=== PATIENT | male | born 1955 | race Caucasian/White ===

== ENCOUNTER 2017-04-01 06:29 | Inpatient (IN) | payer OTHER ==
[2017-04-01] VITALS (28 sets, daily range): BP systolic 98–140; BP diastolic 55–79; PULSE 63–76; RESP 10–22; Ht 162.6 cm; Wt 69.3 kg
[~2017-04-01] VITALS: Ht 162.6 cm; Wt 69.3 kg
[~2017-04-01 06:29] MED LIST: AMLO-147 PO; BECL8.7A INH; LOSA25TA5 PO; OMEP20CA16 PO
[2017-04-01] MEDS ORDERED: POLYMYXIN/BACITRACIN 1L IRRIG ONE (07:19)
[2017-04-01] MEDS ORDERED: POLYMYXIN B 500000 UNIT INJ ONE (07:19)
[2017-04-01] MEDS ORDERED: BACITRACIN 50000 UNITS INJ ONE (07:21)
[2017-04-01] MEDS ORDERED: LOSA100T7 PO (07:49)
[2017-04-01] MEDS ORDERED: PROPOFOL 20 ML ONE (08:02)
[2017-04-01] MEDS ORDERED: morphine SULFATE/PF (10 MG/10 ML) INJ ONE (08:03)
[2017-04-01] MEDS ORDERED: FENTAnyl 50 MCG/ML VIAL ONE (08:03)
[2017-04-01] MEDS ORDERED: ROPIVACAINE 0.5 % 30 ML VIAL ONE (08:03)
[2017-04-01] MEDS ORDERED: METOCLOPRAMIDE 10 MG INJ ONE (08:03)
[2017-04-01] MEDS ORDERED: MIDAZOLAM 1 MG/ML 2 ML INJ ONE (08:03)
[2017-04-01] MEDS ORDERED: KETOROLAC 30 MG INJ ONE (08:05)
--- NOTE | 2017-04-01 08:51 | HPN ---
Date/Time of Note Date/Time of Note DATE: 04/01/17 TIME: 08:51 Interval H&P Admission Note Pt. seen H&P reviewed: No system changes GLADYS MAYA MD Apr 01, 2017 08:51
[2017-04-01] MEDS ORDERED: TRANEXAMIC ACID IVPB ONE ×2 (09:00→10:30)
[2017-04-01] MEDS ORDERED: SOD CHLORIDE 0.9% IVPB ONE ×2 (09:00→10:30)
[2017-04-01] MEDS ORDERED: CEFAZOLIN 1 GM INJ ONE (09:10)
[2017-04-01] MEDS ORDERED: EPHEDrine SULFATE 50 MG/5 ML SYG ONE (09:17)
[2017-04-01] MEDS ORDERED: ONDANSETRON 4 MG INJ ONE (09:31)
[2017-04-01] MEDS ORDERED: ONDANSETRON 4 MG INJ IV PRN (10:00)
[2017-04-01] MEDS ORDERED: MEPERIDINE 25 MG INJ IV PRN (10:00)
[2017-04-01] MEDS ORDERED: HYDROmorphONE (0.2 MG/ML) 10ML SYG IV PRN ×3 (10:00)
[2017-04-01] MEDS ORDERED: DIPHENHYDRAMINE 50 MG INJ IV PRN (10:00)
[2017-04-01] MEDS ORDERED: METOCLOPRAMIDE 10 MG INJ IV PRN (10:00)
--- NOTE | 2017-04-01 11:26 | OPR ---
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 POSTOPERATIVE DIAGNOSIS: Right knee osteoarthritis. OPERATION PERFORMED: Right total knee replacement. SURGEON: Jaydon Maya MD CROWNING INSPECTOR: Юлия Hendrix ANESTHESIOLOGIST: [Abeba Angulo] ANESTHESIA: General endotracheal anesthesia with spinal anesthetic and an adductor canal block. ESTIMATED BLOOD LOSS: [150 cc] INDICATIONS FOR PROCEDURE: This is a 62-year-old male who has had progressive pain in the right knee. The patient has failed nonoperative treatment and now presents for elective total knee replacement. Risks and benefits were discussed with the patient, risks including but not limited to infection, bleeding, blood clots, dislocation, fracture, knee stiffness, nerve damage, blood vessel damage, along with other medical, anesthetic and surgical complications were discussed. Informed consent was obtained. DESCRIPTION OF PROCEDURE: The patient's correct extremity was identified in the preoperative area. The patient was brought back to the operating room where a spinal anesthetic was placed followed by an adductor canal block. The correct extremity was then prepped and draped in the standard sterile manner. A timeout was performed. Esmarch was used to exsanguinate. The thigh tourniquet was inflated to 250 mmHg. I then made a standard midline incision for approaching the knee. I went through skin and subcutaneous tissue, made a medial parapatellar arthrotomy. Then, flexed the knee and introduced an intramedullary alignment guide. Distal femoral cut was made and then the extramedullary alignment guide was used to make the tibial cut. Flexion and extension gaps were checked. There were symmetric. The knee went from full extension to full flexion. I then turned my attention to the patella. I used an [id number] mill type cutting guide, cut the patellar to appropriate thickness and sized the patella. I then trialed the patella. The patella tracked well without any external pressure. I then made the peg holes for the femoral trial. Punched the tibia. I took out all trial components. Thoroughly irrigated the bony surfaces, dried them with a lap sponge. I then proceeded to cement the tibia, femur and patellar components. A trial insert was used till the cement hardened. After the cement hardened, I thoroughly irrigted the knee. The knee was well balanced. I then let down the tourniquet, obtained adequate hemostasis. I thoroughly irrigated the knee. I then impacted the appropriate all poly insert until it locked into place and I had full range of motion with just a jog of opening with varus and valgus stress. I then turned my attention to closure. I closed the medial parapatellar arthrotomy with interrupted #1 Vicryl, subcutaneous tissue was closed with 2-0 Vicryl, skin with everton. Dry sterile dressings were applied. The patient had good perfusion to her foot with a 2+ dorsalis pedis pulse. He was then extubated and transported to recovery in stable condition. JAYDON MAYA MD Apr 01, 2017 11:26
[2017-04-01] MEDS ORDERED: DOCUSATE SODIUM 100 MG CAP PO ONE (11:30)
[2017-04-01] MEDS ORDERED: SENNA/DOCUSATE NA (8.6MG/50MG) TAB PO PRN (11:30)
[2017-04-01] MEDS ORDERED: oxyCODONE 5 MG TAB PO PRN (11:30)
[2017-04-01] MEDS ORDERED: MAGNESIUM HYDROXIDE 30ML CUP PO PRN (11:30)
[2017-04-01] MEDS ORDERED: NALOXONE (0.4 MG/ML) INJ IV PRN (11:30)
[2017-04-01] MEDS: ONDANSETRON 4 MG INJ IV SCH ×2 (11:53→17:14)
[2017-04-01] MEDS: CEFAZOLIN 1 GM/50 ML (PMX) 50 ML IVPB SCH ×2 (12:00→19:56)
--- NOTE | 2017-04-01 13:29 | RADRPT ---
PROCEDURE: XR Knee. CLINICAL INDICATION: Status post right knee replacement TECHNIQUE: AP and lateral view of the right knee were obtained. The images reviewed on a PACS wor kstation. COMPARISON: None. FINDINGS: Complete right knee replacement is identified. Prosthetic components are in appropriate position an d alignment. No fractures or destructive lesions are observed. Surgical drain is seen in the knee. Soft tissue air is procedural in nature. IMPRESSION: Status post right knee replacement. Prosthetic components are in appropriate position and alignment . RPTAT: AA .Alan Salmon MD, MD Date Time Electronically viewed and signed by .Alan Salmon MD, on 04/01/2017 13:29 .P/
[2017-04-01] MEDS: morphine 2 MG INJ IV PRN (14:40)
[2017-04-01] MEDS: DEXTROSE 5%-LR 1,000 ML IV SCH ×2 (14:42→23:43)
--- NOTE | 2017-04-01 18:54 | HP ---
Date/Time of Note Date/Time of Note DATE: 04/01/17 TIME: 18:41 Assessment/Plan VTE Prophylaxis VTE Prophylaxis Intervention: LMWH Lines/Catheters IV Catheter Type (from Nrsg): Peripheral IV Central line still needed: Yes Urinary Cath still in place: No Reason Cath still needed: urinary retention Assessment/Plan Assessment/Plan -Right knee osteoarthritis, status post right total knee replacement. Continue Roxicodone and morphine as needed for pain and Zofran as needed for nausea. F/ up surgery recommendations. -Hypertension, resume patient's home antihypertensive medication, hydralazine as needed for systolic blood pressure above 170. -Possible COPD, continue breathing treatment as needed Further recommendations based on clinical course. Plan of care discussed with Dr. Reynolds. HPI/ROS Admit Date/Time Admit Date/Time Apr 01, 2017 at 06:29 Hx of Present Illness The patient is 62-year-old gentleman with past medical history positive for hypertension and lung surgery 15 years ago, details are not available. Patient was evaluated by Dr. Monae for progressive pain in the right knee due to osteoarthritis. Patient brought to the hospital and underwent right total knee replacement. Postoperatively patient experienced pain and experienced a nonbilious nonbloody emesis after dinner. Patient denies any chest pain denies any shortness of breath denies any fever. Patient is admitted for further evaluation and management. ROS 12 point review of system is negative unless what mentioned in HPI PMH/Family/Social Past Medical History Medical History: hypertension Past Surgical History Past Surgical Hx: other (Lung surgery) Family History Significant Family History: no pertinent family hx Social History Alcohol Use: none Smoking Status: Never smoker Drug Use: none Exam/Review of Systems Vital Signs Vitals Vital Signs Date Time Temp Pulse Resp B/P Pulse Ox O2 Delivery O2 Flow Rate FiO2 04/01/17 17:00 64 17 124/68 96 Room Air 04/01/17 14:00 98.7 Exam Constitutional: alert Psych: no complaints Head: atraumatic, normocephalic Neck: supple Respiratory: normal air movement Cardiovascular: nl pulses Gastrointestinal: non-tender, soft Musculoskeletal: other (Status post right total knee replacement) Extremities: normal pulses 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 intact Skin: nl turgor Medications Medications Current Medications Dextrose/Lactated Ringer's (D5-Lr) 1,000 ml @ 80 mls/hr [id number] IV Last administered on 04/01/17 14:42; Admin Dose 80 MLS/HR; Start 04/01/17 at 11:13 Oxycodone HCl (Roxicodone) 10 mg Q3H PRN PO PAIN LEVEL 4-7; Start 04/01/17 at 11:30 Oxycodone HCl (Roxicodone) 5 mg Q3H PRN PO PAIN LEVEL 1-3; Start 04/01/17 at 11:30 Ondansetron HCl 4 mg 4 mg Q6H IV Last administered on 04/01/17 17:14; Admin Dose 4 MG; Start 04/01/17 at 12:00; Stop 04/02/17 at 06:01 Cefazolin Sodium (Ancef 1 Gm/50 ml (Pmx)) 50 ml @ 100 mls/hr Q8H IVPB Last administered on 04/01/17 12:00; Admin Dose 100 MLS/HR; Start 04/01/17 at 12: 00; Stop 04/02/17 at 04:29 Enoxaparin Sodium (Lovenox) 30 mg BID SC ; Start 04/02/17 at 09:00 Pantoprazole (Protonix Tab) 40 mg DAILY@06 PO ; Start 04/03/17 at 06:00 Docusate Sodium (Colace) 200 mg BID PO ; Start 04/02/17 at 09:00; Stop at 08:59 Senna/Docusate Sodium (Senokot-S) 2 tab BID PRN PO CONSTIPATION; Start at 11:30 Magnesium Hydroxide (Milk Of Mag) 30 ml HS PRN PO CONSTIPATION; Start at 11:30 Naloxone HCl (Narcan) 0.2 mg Q2M PRN IV DECREASED REPIRATORY RATE; Start at 11:30 Morphine Sulfate (morphine) 2 mg Q2H PRN IV PAIN LEVEL 7-10 Last administered on 04/01/17 14:40; Admin Dose 2 MG; Start 04/01/17 at 11:30 KATIE ROSE Apr 01, 2017 18:52
[2017-04-01] MEDS ORDERED: hydrALAzine 20 MG INJ IV PRN (19:00)
[2017-04-01] MEDS ORDERED: LEVALBUTEROL (NEB) 0.63 MG/3 ML AMP HHN PRN (19:00)
[2017-04-02] MEDS: ONDANSETRON 4 MG INJ IV SCH ×2 (00:27→05:04)
[2017-04-02] MEDS: morphine 2 MG INJ IV PRN ×3 (01:16→08:45)
[2017-04-02] MEDS: LEVALBUTEROL (NEB) 0.63 MG/3 ML AMP HHN SCH ×4 (02:57→19:59)
[2017-04-02 03:12] VITALS: BP 123/63; RESP 20
[2017-04-02] MEDS: CEFAZOLIN 1 GM/50 ML (PMX) 50 ML IVPB SCH (04:49)
[2017-04-02] MEDS: oxyCODONE 5 MG TAB PO PRN ×4 (05:03→20:32)
[2017-04-02 05:15] LABS: BASOPHILS % 0.3 % (0.0-2.0); EOSINOPHILS # 0.1 10^3/ul (0.0-0.5); EOSINOPHILS % 0.9 % (0.0-7.0); HEMATOCRIT 33.9 % (42.0-52.0); HEMOGLOBIN 11.2 g/dl (14.0-18.0); LYMPHOCYTES # 1.7 10^3/ul (0.8-2.9); LYMPHOCYTES % 15.6 % (15.0-51.0); MEAN CORPUSCULAR HEMOGLOBIN 30.2 pg (29.0-33.0); MEAN CORPUSCULAR VOLUME 91.4 fl (82.0-101.0); MEAN PLATELET VOLUME 10.3 fl (7.4-10.4); MONOCYTE # 1.1 10^3/ul (0.3-0.9); MONOCYTES % 10.5 % (0.0-11.0); NEUTROPHIL # 7.8 10^3/ul (1.6-7.5); NEUTROPHILS % 72.2 % (39.0-77.0); PLATELET COUNT 216 10^3/UL (140-415); RED BLOOD COUNT 3.71 10^6/ul (4.70-6.10); RED CELL DISTRIBUTION WIDTH 12.7 % (11.5-14.5); WHITE BLOOD COUNT 10.8 10^3/ul (4.8-10.8)
[2017-04-02 05:41] LABS: INR 1.11; PROTIME 14.3 Sec (12.2-14.2); PT RATIO 1.1
[2017-04-02 05:59] LABS: CALCIUM 8.6 mg/dl (8.4-10.2); CREATININE 0.8 mg/dl (0.61-1.24); POTASSIUM 3.3 mmol/L (3.5-5.1)
--- NOTE | 2017-04-02 06:04 | PN ---
Date/Time of Note Date/Time of Note DATE: 04/02/17 TIME: 06:01 Assessment/Plan VTE Prophylaxis VTE Prophylaxis Intervention: other Lines/Catheters IV Catheter Type (from Nrsg): Peripheral IV Urinary Cath still in place: Yes Subjective 24 Hr Interval Summary Free Text/Dictation Anesthesia note: A 62 year old male s/p right knee arthroplasty under GA, duramorph POD #1 is doing fine , no pain, N/V, back pain, headache. care per surgery Exam/Review of Systems Vital Signs Vitals Vital Signs Date Time Temp Pulse Resp B/P Pulse Ox O2 Delivery O2 Flow Rate FiO2 04/02/17 03:12 98.6 74 20 123/63 95 04/02/17 02:50 2.0 28 04/02/17 02:50 Nasal Cannula Intake and Output 04/01/17 04/01/17 04/02/17 15:00 23:00 07:00 Intake Total 1800 ml 1040 ml 940 ml Output Total 703 ml 1150 ml 1550 ml Balance 1097 ml -110 ml -610 ml Results Result Diagram: 04/02/17 0442 Results 24 hrs Laboratory Tests Test 04/02/17 04:42 White Blood Count 10.8 Red Blood Count 3.71 L Hemoglobin 11.2 L Hematocrit 33.9 L Mean Corpuscular Volume 91.4 Mean Corpuscular Hemoglobin 30.2 Mean Corpuscular Hemoglobin Concent 33.0 Red Cell Distribution Width 12.7 Platelet Count 216 Mean Platelet Volume 10.3 Neutrophils % 72.2 Lymphocytes % 15.6 Monocytes % 10.5 Eosinophils % 0.9 Basophils % 0.3 Nucleated Red Blood Cells % 0.0 Neutrophils # 7.8 H Lymphocytes # 1.7 Monocytes # 1.1 H Eosinophils # 0.1 Basophils # 0.0 Nucleated Red Blood Cells # 0.0 Prothrombin Time 14.3 H Prothrombin Time Ratio 1.1 INR International Normalized Ratio 1.11 Medications Medications Current Medications Dextrose/Lactated Ringer's (D5-Lr) 1,000 ml @ 80 mls/hr [id number] IV Last administered on 04/01/17 14:42; Admin Dose 80 MLS/HR; Start 04/01/17 at 11:13 Oxycodone HCl (Roxicodone) 10 mg Q3H PRN PO PAIN LEVEL 4-7 Last administered on 04/02/17 05:03; Admin Dose 10 MG; Start 04/01/17 at 11:30 Oxycodone HCl (Roxicodone) 5 mg Q3H PRN PO PAIN LEVEL 1-3; Start 04/01/17 at 11:30 Ondansetron HCl (Zofran Inj) 4 mg Q6H IV Last administered on 04/02/17 05:04 ; Admin Dose 4 MG; Start 04/01/17 at 12:00; Stop 04/02/17 at 06:01 Enoxaparin Sodium (Lovenox) 30 mg BID SC ; Start 04/02/17 at 09:00 Pantoprazole (Protonix Tab) 40 mg DAILY@06 PO ; Start 04/03/17 at 06:00 Docusate Sodium (Colace) 200 mg BID PO ; Start 04/02/17 at 09:00; Stop at 08:59 Senna/Docusate Sodium (Senokot-S) 2 tab BID PRN PO CONSTIPATION; Start at 11:30 Magnesium Hydroxide (Milk Of Mag) 30 ml HS PRN PO CONSTIPATION; Start at 11:30 Naloxone HCl (Narcan) 0.2 mg Q2M PRN IV DECREASED REPIRATORY RATE; Start at 11:30 Morphine Sulfate (morphine) 2 mg Q2H PRN IV PAIN LEVEL 7-10 Last administered on 04/02/17 03:22; Admin Dose 2 MG; Start 04/01/17 at 11:30 Amlodipine Besylate (Norvasc) 10 mg DAILY PO ; Start 04/02/17 at 09:00 Losartan Potassium (Cozaar) 100 mg DAILY PO ; Start 04/02/17 at 09:00 Hydralazine HCl (Apresoline) 10 mg Q4H PRN IV SBP>170; Start 04/01/17 at 19:00 YADIEL RITTER MD Apr 02, 2017 06:04
[2017-04-02 07:56] VITALS: BP 112/72; RESP 20
[2017-04-02] MEDS: ENOXAPARIN 30 MG/0.3 ML SYG SC SCH ×2 (08:42→20:33)
[2017-04-02] MEDS: DOCUSATE SODIUM 100 MG CAP PO SCH ×2 (08:45→20:32)
[2017-04-02] MEDS: LOSARTAN 50 MG TAB PO SCH (08:51)
[2017-04-02] MEDS: AMLODIPINE 10 MG TAB PO SCH (08:51)
--- NOTE | 2017-04-02 10:17 | RADRPT ---
PROCEDURE: XR Chest. CLINICAL INDICATION: Shortness of breath. TECHNIQUE: Single frontal view. COMPARISON: None. FINDINGS: The lungs are clear. The heart is enlarged. There is no pleural effusion. There is no pneumothorax. IMPRESSION: 1. Cardiomegaly. 2. Otherwise normal chest radiograph. RPTAT: QQ .Franc Estrada MD, MD Date Time Electronically viewed and signed by .Franc Estrada MD, on 04/02/2017 10:16 .R/
[2017-04-02] MEDS: DEXTROSE 5%-LR 1,000 ML IV SCH (12:13)
--- NOTE | 2017-04-02 12:15 | PN ---
Date/Time of Note Date/Time of Note DATE: 04/02/17 TIME: 12:13 Assessment/Plan Lines/Catheters IV Catheter Type (from Nrsg): Saline Lock G[place] in Place (from Nrsg): No Assessment/Plan Assessment/Plan POD 1 s/p R tka pain control Incentive spirometer d/c gasca On Lovenox, SCD's for DVT prophylaxis CPM, gait training with PT Discharge planning Subjective 24 Hr Interval Summary Complaining of pain, better after receiving pain meds Exam/Review of Systems Vital Signs Vitals Vital Signs Date Time Temp Pulse Resp B/P Pulse Ox O2 Delivery O2 Flow Rate FiO2 04/02/17 08:30 Nasal Cannula 2.0 04/02/17 07:56 98.8 92 20 112/72 96 04/02/17 02:50 28 Intake and Output 04/01/17 04/01/17 04/02/17 15:00 23:00 07:00 Intake Total 1800 ml 1040 ml 1700 ml Output Total 703 ml 1150 ml 1800 ml Balance 1097 ml -110 ml -100 ml Exam Free Text/Dictation Dressing c/d/i. Calf soft intact motor and sensory function in foot Foot warm Results Result Diagram: 04/02/17 0442 04/02/17 0442 GLADYS MAYA MD Apr 02, 2017 12:15
--- NOTE | 2017-04-02 13:20 | PN ---
Date/Time of Note Date/Time of Note DATE: 04/02/17 TIME: 13:17 Assessment/Plan VTE Prophylaxis VTE Prophylaxis Intervention: other Lines/Catheters IV Catheter Type (from Nrsg): Saline Lock Urinary Cath still in place: No Assessment/Plan Assessment/Plan - Hypokalemia- replace K, BMP am - status post right total knee replacement. Right knee- DDI, CSM intact - per ortho - Continue Roxicodone and morphine as needed for pain and Zofran as needed for nausea. - Right knee osteoarthritis -Hypertension - cont patient's home antihypertensive medication, hydralazine as needed for systolic blood pressure above 170. -Possible COPD, continue breathing treatment as needed Anticipate discharge when cleared by ortho. Discharge on Eliquis 2.5 mg po BID X 12 days.Further recommendations based on clinical course. Plan of care discussed with Dr. Reynolds. Subjective 24 Hr Interval Summary Free Text/Dictation status post right total knee replacement. c/o Right knee pain- DDI, CSM intact , able to use bed side commode. dw staff- no new events reported overnight. Respiratory: no complaints Cardiovascular: no complaints Gastrointestinal: no complaints Genitourinary: no complaints Musculoskeletal: bone/joint pain, other, restricted range of motion Exam/Review of Systems Vital Signs Vitals Vital Signs Date Time Temp Pulse Resp B/P Pulse Ox O2 Delivery O2 Flow Rate FiO2 04/02/17 08:30 Nasal Cannula 2.0 04/02/17 07:56 98.8 92 20 112/72 96 04/02/17 02:50 28 Intake and Output 04/01/17 04/01/17 04/02/17 15:00 23:00 07:00 Intake Total 1800 ml 1040 ml 1700 ml Output Total 703 ml 1150 ml 1800 ml Balance 1097 ml -110 ml -100 ml Exam Constitutional: alert, oriented Respiratory: clear to auscultation, diminished breath sounds Cardiovascular: nl pulses, regular rate and rhythm Gastrointestinal: non-tender, soft Extremities: normal pulses Neurological: nl mental status, nl speech Results Result Diagram: 04/02/17 0442 04/02/17441 Results 24 hrs Laboratory Tests Test 04/02/17 04:42 White Blood Count 10.8 Red Blood Count 3.71 L Hemoglobin 11.2 L Hematocrit 33.9 L Mean Corpuscular Volume 91.4 Mean Corpuscular Hemoglobin 30.2 Mean Corpuscular Hemoglobin Concent 33.0 Red Cell Distribution Width 12.7 Platelet Count 216 Mean Platelet Volume 10.3 Neutrophils % 72.2 Lymphocytes % 15.6 Monocytes % 10.5 Eosinophils % 0.9 Basophils % 0.3 Nucleated Red Blood Cells % 0.0 Neutrophils # 7.8 H Lymphocytes # 1.7 Monocytes # 1.1 H Eosinophils # 0.1 Basophils # 0.0 Nucleated Red Blood Cells # 0.0 Prothrombin Time 14.3 H Prothrombin Time Ratio 1.1 INR International Normalized Ratio 1.11 Sodium Level 139 Potassium Level 3.3 L Chloride Level 102 Carbon Dioxide Level 29 Anion Gap 11 Blood Urea Nitrogen 7 Creatinine 0.80 Glucose Level 123 Calcium Level 8.6 Medications Medications Current Medications Dextrose/Lactated Ringer's (D5-Lr) 1,000 ml @ 80 mls/hr [id number] IV Last administered on 04/01/17 14:42; Admin Dose 80 MLS/HR; Start 04/01/17 at 11:13 Oxycodone HCl (Roxicodone) 10 mg Q3H PRN PO PAIN LEVEL 4-7 Last administered on 04/02/17 11:08; Admin Dose 10 MG; Start 04/01/17 at 11:30 Oxycodone HCl (Roxicodone) 5 mg Q3H PRN PO PAIN LEVEL 1-3; Start 04/01/17 at 11:30 Enoxaparin Sodium (Lovenox) 30 mg BID SC Last administered on 04/02/17 08:42 ; Admin Dose 30 MG; Start 04/02/17 at 09:00 Pantoprazole (Protonix Tab) 40 mg DAILY@06 PO ; Start 04/03/17 at 06:00 Docusate Sodium (Colace) 200 mg BID PO Last administered on 04/02/17 08:45; Admin Dose 200 MG; Start 04/02/17 at 09:00; Stop 04/05/17 at 08:59 Senna/Docusate Sodium (Senokot-S) 2 tab BID PRN PO CONSTIPATION; Start at 11:30 Magnesium Hydroxide (Milk Of Mag) 30 ml HS PRN PO CONSTIPATION; Start at 11:30 Naloxone HCl (Narcan) 0.2 mg Q2M PRN IV DECREASED REPIRATORY RATE; Start at 11:30 Morphine Sulfate (morphine) 2 mg Q2H PRN IV PAIN LEVEL 7-10 Last administered on 04/02/17t 08:45; Admin Dose 2 MG; Start 04/01/17 at 11:30 Amlodipine Besylate (Norvasc) 10 mg DAILY PO ; Start 04/02/17 at 09:00 Losartan Potassium (Cozaar) 100 mg DAILY PO ; Start 04/02/17 at 09:00 Hydralazine HCl (Apresoline) 10 mg Q4H PRN IV SBP>170; Start 04/01/17 at 19:00 TAE ERICKSON Apr 02, 2017 13:20
[2017-04-02] MEDS ORDERED: POTASSIUM CHLORIDE 20 MEQ in SOD CHLORIDE 0.9% 100 ML IVPB ONE (15:00)
[2017-04-02 15:53] VITALS: BP 171/84; RESP 20
[2017-04-02 20:00] VITALS: BP 163/80; RESP 20
[2017-04-03] MEDS: DEXTROSE 5%-LR 1,000 ML IV SCH ×2 (00:43→13:10)
[2017-04-03] MEDS: oxyCODONE 5 MG TAB PO PRN ×6 (00:59→21:52)
[2017-04-03] MEDS: LEVALBUTEROL (NEB) 0.63 MG/3 ML AMP HHN SCH ×4 (02:00→20:28)
[2017-04-03 02:03] VITALS: BP 164/84; RESP 18
[2017-04-03 05:27] LABS: BASOPHILS % 0.3 % (0.0-2.0); EOSINOPHILS # 0.1 10^3/ul (0.0-0.5); EOSINOPHILS % 0.8 % (0.0-7.0); HEMATOCRIT 32.5 % (42.0-52.0); HEMOGLOBIN 10.8 g/dl (14.0-18.0); LYMPHOCYTES # 1.8 10^3/ul (0.8-2.9); LYMPHOCYTES % 16.2 % (15.0-51.0); MEAN CORPUSCULAR HEMOGLOBIN 29.9 pg (29.0-33.0); MEAN CORPUSCULAR HGB CONC 33.2 g/dl (32.0-37.0); MEAN PLATELET VOLUME 10.5 fl (7.4-10.4); MONOCYTE # 1.4 10^3/ul (0.3-0.9); NEUTROPHIL # 7.6 10^3/ul (1.6-7.5); NEUTROPHILS % 69.2 % (39.0-77.0); PLATELET COUNT 204 10^3/UL (140-415); RED BLOOD COUNT 3.61 10^6/ul (4.70-6.10); RED CELL DISTRIBUTION WIDTH 12.4 % (11.5-14.5)
[2017-04-03 05:50] LABS: INR 1.1; PROTIME 14.2 Sec (12.2-14.2); PT RATIO 1.1
[2017-04-03 05:56] LABS: CALCIUM 8.4 mg/dl (8.4-10.2); CREATININE 0.7 mg/dl (0.61-1.24); POTASSIUM 3.5 mmol/L (3.5-5.1)
[2017-04-03] MEDS: PANTOPRAZOLE (EC) 40 MG TAB PO SCH (06:57)
[2017-04-03 07:37] VITALS: BP 167/79; RESP 18
[2017-04-03] MEDS: AMLODIPINE 10 MG TAB PO SCH (08:32)
[2017-04-03] MEDS: DOCUSATE SODIUM 100 MG CAP PO SCH ×2 (08:32→20:43)
[2017-04-03] MEDS: LOSARTAN 50 MG TAB PO SCH (08:32)
[2017-04-03] MEDS: ENOXAPARIN 30 MG/0.3 ML SYG SC SCH ×2 (08:34→20:57)
--- NOTE | 2017-04-03 14:09 | PN ---
Date/Time of Note Date/Time of Note DATE: 04/03/17 TIME: 14:06 Assessment/Plan VTE Prophylaxis VTE Prophylaxis Intervention: other Lines/Catheters IV Catheter Type (from Nrsg): Saline Lock Urinary Cath still in place: No Assessment/Plan Assessment/Plan - Hypokalemia- resolved - status post right total knee replacement. Right knee- DDI, CSM intact - per ortho - Continue Roxicodone and morphine as needed for pain and Zofran as needed for nausea. - Right knee osteoarthritis -Hypertension - cont patient's home antihypertensive medication, hydralazine as needed for systolic blood pressure above 170. -Possible COPD, continue breathing treatment as needed Anticipate discharge when cleared by ortho. Discharge on Eliquis 2.5 mg po BID X 12 days. Further recommendations based on clinical course. Plan of care discussed with Dr. Reynolds. Subjective 24 Hr Interval Summary Free Text/Dictation c/o Right knee pain while on CPM, DDI, CSM intact, able to use bed side commode. dw staff- no new events reported overnight. Exam/Review of Systems Vital Signs Vitals Vital Signs Date Time Temp Pulse Resp B/P Pulse Ox O2 Delivery O2 Flow Rate FiO2 04/03/17 13:47 2.0 04/03/17 07:51 84 20 95 Nasal Cannula 28 04/03/17 07:37 98.3 167/79 Intake and Output 04/02/17 04/02/17 04/03/17 14:59 22:59 06:59 Intake Total 50 ml 1450 ml 1000 ml Output Total 400 ml 1900 ml Balance 50 ml 1050 ml -900 ml Exam Constitutional: alert, oriented, well developed Respiratory: clear to auscultation Cardiovascular: nl pulses (s1s2) Gastrointestinal: non-tender, soft Musculoskeletal: other (status post right total knee replacement. Right knee- DDI, CSM intact) Extremities: normal pulses Neurological: nl mental status, nl speech Results Result Diagram: 04/03/1742904/03/17429 Results 24 hrs Laboratory Tests Test 04/03/17 04:29 04/03/17 04:30 Prothrombin Time 14.2 Prothrombin Time Ratio 1.1 INR International Normalized Ratio 1.10 White Blood Count 11.0 H Red Blood Count 3.61 L Hemoglobin 10.8 L Hematocrit 32.5 L Mean Corpuscular Volume 90.0 Mean Corpuscular Hemoglobin 29.9 Mean Corpuscular Hemoglobin Concent 33.2 Red Cell Distribution Width 12.4 Platelet Count 204 Mean Platelet Volume 10.5 H Neutrophils % 69.2 Lymphocytes % 16.2 Monocytes % 13.0 H Eosinophils % 0.8 Basophils % 0.3 Nucleated Red Blood Cells % 0.0 Neutrophils # 7.6 H Lymphocytes # 1.8 Monocytes # 1.4 H Eosinophils # 0.1 Basophils # 0.0 Nucleated Red Blood Cells # 0.0 Sodium Level 138 Potassium Level 3.5 Chloride Level 97 Carbon Dioxide Level 32 H Anion Gap 13 Blood Urea Nitrogen 6 L Creatinine 0.70 Glucose Level 119 Calcium Level 8.4 Medications Medications Current Medications Dextrose/Lactated Ringer's (D5-Lr) 1,000 ml @ 80 mls/hr [id number] IV Last administered on 04/01/17 14:42; Admin Dose 80 MLS/HR; Start 04/01/17 at 11:13 Oxycodone HCl (Roxicodone) 10 mg Q3H PRN PO PAIN LEVEL 4-7 Last administered on 04/03/17 13:09; Admin Dose 10 MG; Start 04/01/17 at 11:30 Oxycodone HCl (Roxicodone) 5 mg Q3H PRN PO PAIN LEVEL 1-3; Start 04/01/17 at 11:30 Enoxaparin Sodium (Lovenox) 30 mg BID SC Last administered on 04/03/17 08:34 ; Admin Dose 30 MG; Start 04/02/17 at 09:00 Pantoprazole (Protonix Tab) 40 mg DAILY@06 PO Last administered on 04/03/17 06:57; Admin Dose 40 MG; Start 04/03/17 at 06:00 Docusate Sodium (Colace) 200 mg BID PO Last administered on 04/03/17 08:32; Admin Dose 200 MG; Start 04/02/17 at 09:00; Stop 04/05/17 at 08:59 Senna/Docusate Sodium (Senokot-S) 2 tab BID PRN PO CONSTIPATION; Start at 11:30 Magnesium Hydroxide (Milk Of Mag) 30 ml HS PRN PO CONSTIPATION; Start at 11:30 Naloxone HCl (Narcan) 0.2 mg Q2M PRN IV DECREASED REPIRATORY RATE; Start at 11:30 Morphine Sulfate (morphine) 2 mg Q2H PRN IV PAIN LEVEL 7-10 Last administered on 04/02/17 08:45; Admin Dose 2 MG; Start 04/01/17 at 11:30 Amlodipine Besylate (Norvasc) 10 mg DAILY PO Last administered on 04/03/17 08 :32; Admin Dose 10 MG; Start 04/02/17 at 09:00 Losartan Potassium (Cozaar) 100 mg DAILY PO Last administered on 04/03/17 08: 32; Admin Dose 100 MG; Start 04/02/17 at 09:00 Hydralazine HCl (Apresoline) 10 mg Q4H PRN IV SBP>170; Start 04/01/17 at 19:00 TAE ERICKSON Apr 03, 2017 14:09
[2017-04-03 16:14] VITALS: BP 142/73; RESP 85
[2017-04-03 20:00] VITALS: BP 134/75; RESP 19
[2017-04-04] MEDS: oxyCODONE 5 MG TAB PO PRN ×5 (01:17→18:06)
[2017-04-04] MEDS: LEVALBUTEROL (NEB) 0.63 MG/3 ML AMP HHN SCH ×3 (01:31→13:41)
[2017-04-04] MEDS: DEXTROSE 5%-LR 1,000 ML IV SCH ×2 (01:43→14:13)
[2017-04-04 02:00] VITALS: BP 129/66; RESP 16
[2017-04-04] MEDS: PANTOPRAZOLE (EC) 40 MG TAB PO SCH (05:08)
[2017-04-04 06:05] LABS: BASOPHILS % 0.4 % (0.0-2.0); EOSINOPHILS # 0.2 10^3/ul (0.0-0.5); EOSINOPHILS % 1.8 % (0.0-7.0); HEMATOCRIT 32.9 % (42.0-52.0); LYMPHOCYTES # 1.9 10^3/ul (0.8-2.9); LYMPHOCYTES % 19.4 % (15.0-51.0); MEAN CORPUSCULAR HEMOGLOBIN 30.5 pg (29.0-33.0); MEAN CORPUSCULAR HGB CONC 33.4 g/dl (32.0-37.0); MEAN CORPUSCULAR VOLUME 91.1 fl (82.0-101.0); MEAN PLATELET VOLUME 10.5 fl (7.4-10.4); MONOCYTE # 1.1 10^3/ul (0.3-0.9); MONOCYTES % 11.5 % (0.0-11.0); NEUTROPHIL # 6.5 10^3/ul (1.6-7.5); NEUTROPHILS % 66.6 % (39.0-77.0); PLATELET COUNT 207 10^3/UL (140-415); RED BLOOD COUNT 3.61 10^6/ul (4.70-6.10); RED CELL DISTRIBUTION WIDTH 12.5 % (11.5-14.5); WHITE BLOOD COUNT 9.8 10^3/ul (4.8-10.8)
[2017-04-04 06:29] LABS: INR 1.03; PROTIME 13.5 Sec (12.2-14.2); PT RATIO 1.1
[2017-04-04 06:35] LABS: CALCIUM 8.8 mg/dl (8.4-10.2); CREATININE 0.76 mg/dl (0.61-1.24); POTASSIUM 3.6 mmol/L (3.5-5.1)
[2017-04-04 07:00] VITALS: BP 117/68; RESP 18
[2017-04-04] MEDS: DOCUSATE SODIUM 100 MG CAP PO SCH (09:36)
[2017-04-04 09:44] VITALS: BP 107/65; PULSE 77; RESP 16
[2017-04-04] MEDS: LOSARTAN 50 MG TAB PO SCH (09:46)
[2017-04-04] MEDS: AMLODIPINE 10 MG TAB PO SCH (09:46)
[2017-04-04] MEDS: ENOXAPARIN 30 MG/0.3 ML SYG SC SCH (09:49)
--- NOTE | 2017-04-04 13:02 | PN ---
Date/Time of Note Date/Time of Note DATE: 04/04/17 TIME: 13:00 Assessment/Plan Lines/Catheters IV Catheter Type (from Nrsg): Saline Lock [place] in Place (from Nrsg): No Assessment/Plan Assessment/Plan Doing well Discharge home today xarelto 10 mg po day x 2 weeks Cpm for home use Subjective 24 Hr Interval Summary No complaints. Pain improved today Exam/Review of Systems Vital Signs Vitals Vital Signs Date Time Temp Pulse Resp B/P Pulse Ox O2 Delivery O2 Flow Rate FiO2 04/04/17 09:44 97.7 77 16 107/65 Room Air 04/04/17 07:46 91 21 04/04/17 01:43 2.0 Intake and Output 04/03/17 04/03/17 04/04/17 15:00 23:00 07:00 Intake Total 1280 ml Output Total 1400 ml Balance -120 ml Exam Free Text/Dictation Incision c/d/i. No erythema Calf soft and non tender Foot warm and well perfused. Results Result Diagram: 04/04/17 0504 04/04/17 0504 GLADYS MAYA MD Apr 04, 2017 13:02
[2017-04-04 14:38] VITALS: BP 117/62; RESP 18
[2017-04-04] MEDS ORDERED: OXYC-481 PO (16:37)
[2017-04-04] MEDS ORDERED: RIVA10TA PO (16:37)
== END 2017-04-04 18:34 | disposition home health service (06) | DRG 470 ==
LOC: REC 06:29 → MS1 13:56
PROVIDERS: ADMIT Specialist; ATTEND Specialist
PROC: 0SRC0J9 Replacement of Right Knee Joint with Synthetic Substitute, Cemented, Open Approach (ICD-10-PCS; principal; 2017-04-01 08:00)
DX: M17.11 Unilateral primary osteoarthritis, right knee (principal); I10 Essential (primary) hypertension; E87.6 Hypokalemia
CPT/HCPCS: 71010; 73560; 80048; 85025; 85610; 86850; 86900; 86901; 87086; 88304; 88311; 94640; 94664; 97110; 97116; 97163; 97530; C1713; J0690; J1650; J1885; J2250; J2270; J2274; J2405; J2765; J2795; J3010; J3480; J7121